=== PATIENT | female | born 1995 | race Caucasian/White ===

== ENCOUNTER 2017-02-11 10:35 | Inpatient (IN) | payer OTHER ==
[~2017-02-11] VITALS: Ht 162.6 cm; Wt 80.3 kg
== END 2017-02-13 13:48 | disposition home or self-care (01) | DRG 775 ==
LOC: OBS/DEL 10:35 → OB/GYN 16:40 → LDR 16:40 → OBS/DEL 16:40 → OB/GYN 02-12 00:27
PROC: 10E0XZZ Delivery of Products of Conception, External Approach (ICD-10-PCS; principal; 2017-02-11)
PROC: 4A1HXCZ Monitoring of Products of Conception, Cardiac Rate, External Approach (ICD-10-PCS; 2017-02-11)
PROC: 4A033R1 Measurement of Arterial Saturation, Peripheral, Percutaneous Approach (ICD-10-PCS; 2017-02-11)
DX: O23.43 Unspecified infection of urinary tract in pregnancy, third trimester (principal); Z37.0 Single live birth; Z3A.41 41 weeks gestation of pregnancy